=== PATIENT | female | born 1935 | race Caucasian/White ===

== ENCOUNTER → 2016-06-08 | Outpatient (CLI) | payer MEDICARE, BC ==
[~2016-06-08] MED LIST: ACET-1783 PO; ACHD5005 PO; ASCO-262 PO; ASPI-586 PO; ASPI81TA57 PO; BACL10TA PO; CALC1CAP21 PO; CALC600T12 PO; CALCIUM; CEFP500T4 PO; CELE-63 PO; CENTRUM SILVER; CEPH500C PO; CHOL10003 PO; CHOL20002 PO; CIPR-225 PO; CLCX200C PO; CLD600T; CO Q-10; DEXL60CA5 PO; DOCU100T7; DOCU100T7 PO; DULO60CA6 PO; EST.625T; EST45C; FLAX100031 PO; FLAXSEED OIL; FOLI1TAB6 PO; GABA600T2; GABA600T2 PO; HYDR-2890 PO; HYDR-3714 PO; HYDR-3812 PO; HYDR-3816 PO; HYDR-3875 PO; LEVO50TA63 PO; LEVO75TA58; LEVOTHYROX PO; LOVAZA PO; LUNESTA; LVT.025T PO; MULT-856 PO; NAPR500T72; NF-ESOM40C PO; NF-LOVAZAC; NF-LOVAZAC PO; NIAC1000; NIAC1000 PO; NITR-65 PO; OMEG1CAP PO; OMEGA 3 PO; OMG1KC; ONDA4TAB8 PO; OXAPROZIN; PANT40TA PO; PEG250PW PO; RED YEAST RICE; SNN187T PO; SPIR100T28 PO; SPRN25T; TAMS0.4C98 PO; TRAM50TA2 PO; TRM50T PO; VIT D; VITAMIN C; VITIMIN C PO; VYTORIN; ZLP10T; ZLP10T PO; [UNRECOGNIZED DRUG - CODE] PO; [UNRECOGNIZED DRUG - OTHER]
--- OUTSIDE RECORDS SUMMARY | 2016-06-08 11:00 | XMS REPORT | Continuity of Care Document ---
Author Author [facility] Organization [facility] Address Unknown Phone Unavailable Care Team Providers Care Utilization Review Specialist Name Role Phone Lindsey Morris PCP [phone] Source Comments Some departments are not documenting in the electronic medical record. If you do not see the information that you expected, contact Release of Information in the Health Information Management department at [phone] for further assistance in locating additional records.[facility] Active Allergies and Adverse Reactions Allergen Noted Date Severity Reactions Comments Osvaldo 12/29/2014 Low DIZZINESS Hand tremor and confusion Current Medications Prescription Sig. Disp. Refills Start End Date Status Date FLAXSEED OIL (OMEGA 3 PO) Take 1 Cap by mouth twice Active daily. traMADol (ULTRAM) 50 mg Take 50 mg by mouth Active tablet daily. pt takes 2 tabs in the morning, 1 tab in the evening DULoxetine DR (CYMBALTA) Take 60 mg by mouth at Active 60 mg capsule bedtime daily. pantoprazole DR Take 40 mg by mouth twice Active (PROTONIX) 40 mg tablet daily. baclofen (LIORESAL) 10 mg Take 10 mg by mouth at Active tablet bedtime daily. FOLIC Take 1 Tab by mouth Active ACID/MULTIVIT-MIN/LUTEIN daily. (CENTRUM SILVER PO) aspirin EC 81 mg tablet Take 81 mg by mouth Active daily. spironolactone Take 50 mg by mouth every Active (ALDACTONE) 100 mg tablet morning. levothyroxine (SYNTHROID) Take 75 mcg by mouth Active 75 mcg tablet every morning. celecoxib (CELEBREX) 200 Take 200 mg by mouth Active mg capsule twice daily. [place]-3 Acid Ethyl Esters Take 4 g by mouth daily. Active (LOVAZA) 1 gram cap docusate (COLACE) 100 mg Take 100 mg by mouth Active capsule daily. pravastatin (PRAVACHOL) Take 10 mg by mouth Active 10 mg tablet daily. CALCIUM PO Take 1,000 mg by mouth. Active cholecalciferol (VITAMIN Take 1,000 Units by mouth Active D-3) 1,000 units tablet daily. Active Problems No known active problems Resolved Problems Problem Noted Date Resolved Date Hypercalcemia 02/03/2015 03/15/2015 Social History Tobacco Use Types Packs/Day Years Used Date Never Smoker Smokeless Tobacco: Never Used Alcohol Use Drinks/Week oz/Week Comments No 0 Standard 0.0 drinks or equivalent Last Filed Vital Signs Vital Sign Reading Time Taken Blood Pressure 144/80 09/14/2015 10:20 AM CDT Pulse 77 09/14/2015 10:20 AM CDT Temperature 36.7 C (98.1 F) 09/14/2015 10:20 AM CDT Respiratory Rate 18 09/14/2015 10:20 AM CDT Height 1.524 m (5') 09/14/2015 10:20 AM CDT Weight 88.27 kg (194 lb 9.6 oz) 09/14/2015 10:20 AM CDT Body Mass Index 38.01 09/14/2015 10:20 AM CDT Oxygen Saturation 96% 09/14/2015 10:20 AM CDT Plan of Care Health Maintenance Due Date Last Done Comments Physical (Comprehensive) 1942 Exam Pertussis Vaccine 1947 Tetanus Vaccine 1953 Shingles Vaccine 1996 Osteoporosis Screening 2001 Prevnar/Pneumovax (#1) 2001 Influenza Vaccine 01/27/2016 Results from Last 3 Months Not on file
--- NOTE | 2016-06-08 14:53 | Diagnostic Imaging Report ---
EXAMINATION: DEXA scan. INDICATION: Osteopenia. TECHNIQUE: Bone mineral density estimated based on dual energy radiography over the lumbar spine and femoral necks, was performed. FINDINGS: Lumbar spine T score was not feasible secondary to fusion hardware. T score in the left femoral neck is -1.3 and on the right side is -0.6 for a mean of -1. This is a 0.8% decreased density measurements compared to 2011 scan. IMPRESSION: Borderline osteopenia. Dictated by: Dictated on workstation # [id number]
--- NOTE | 2016-06-08 14:57 | Diagnostic Imaging Report ---
PROCEDURE: US Carotid Duplex Bilateral. TECHNIQUE: Multiple real-time grayscale images were obtained over the carotid arteries in various projections bilaterally. Additional duplex Doppler and color Doppler images were also obtained. INDICATION: Multiple falls. FINDINGS: The carotid arteries demonstrate no significant plaque on grayscale images. Color Doppler demonstrates patency of the common, internal and external carotid arteries bilaterally and antegrade flow in the vertebral arteries. There are peak systolic velocities of 96, 90 and 66 cm/s from proximal to distal in the right ICA and velocities of 86, 80 and 72 cm/s from proximal to distal on the left. ICA/CCA ratios are up to 0.8 on the right side and up to 1 on the left. IMPRESSION: No significant atherosclerotic plaque is seen. Estimated underlying stenosis is in the range of 0-25% bilaterally. Dictated by: Dictated on workstation # [id number]
== END ==
LOC: RAD 10:52
PROVIDERS: ATTEND Family Medicine
DX: I65.23 Occlusion and stenosis of bilateral carotid arteries (principal); M80.831A Other osteoporosis with current pathological fracture, right forearm, initial encounter for fracture; E55.9 Vitamin D deficiency, unspecified
CPT/HCPCS: 77080; 93880

== ENCOUNTER → 2016-08-14 | Outpatient (CLI) | payer MEDICARE, BC ==
--- OUTSIDE RECORDS SUMMARY | 2016-08-14 15:20 | XMS REPORT | Continuity of Care Document ---
Author Author [facility] Organization [facility] Address Unknown Phone Unavailable Care Team Providers Care Collection Systems Foreman Name Role Phone Lindsey Morris PCP [phone] Source Comments Some departments are not documenting in the electronic medical record. If you do not see the information that you expected, contact Release of Information in the Health Information Management department at [phone] for further assistance in locating additional records.[facility] Active Allergies and Adverse Reactions Allergen [...] by mouth Active mg capsule twice daily. [place]-3 Acid Ethyl Esters Take 4 g by [...]
--- NOTE | 2016-08-14 16:11 | Diagnostic Imaging Report ---
INDICATION: Nephrolithiasis. EXAMINATION: KUB at 3:39 PM. FINDINGS: There are postop changes from fusion of the lower lumbar spine. There are no calculi seen in the abdomen or pelvis. The bowel gas pattern is normal. IMPRESSION: No acute abnormalities in the abdomen. Dictated by: Dictated on workstation # [id number]
== END ==
LOC: RAD 15:16
PROVIDERS: ATTEND Urology
DX: Z87.442 Personal history of urinary calculi (principal)
CPT/HCPCS: 74000

== ENCOUNTER 2017-05-07 10:28 | Emergency (ER) | payer MEDICARE, BC ==
[~2017-05-07] VITALS: Ht 152.4 cm; Wt 81.6 kg
--- OUTSIDE RECORDS SUMMARY | 2017-05-07 10:35 | XMS REPORT | Clinical Summary ---
Author Author [facility] Organization [facility] Address Unknown Phone Unavailable Care Team Providers Care Can Cutter Name Role Phone PCP Unavailable Source Comments Some departments are not documenting in the electronic medical record. If you do not see the information that you expected, contact Release of Information in the Health Information Management department at [phone] for further assistance in locating additional records.[facility] Allergies Active Allergy Reactions Severity Noted Date Comments Pregabalin DIZZINESS Low 12/29/2014 Hand tremor and confusion Current Medications Prescription [...] by mouth Active mg capsule twice daily. [place]-3 Acid Ethyl Esters Take 4 g by [...] Noted Date Resolved Date Hypercalcemia 02/03/2015 03/15/2015 Family History Medical History Relation Name Comments Arthritis-osteo Mother High Cholesterol Mother Hypertension Mother Diabetes Sister Relation Name Status Comments Mother Sister Social History Tobacco Use Types Packs/Day Years Used Date Never Smoker Smokeless Tobacco: Never Used Alcohol Use Drinks/Week oz/Week Comments No 0 Standard 0.0 drinks or equivalent Sex Assigned at Date Recorded Not on file Last Filed Vital Signs Vital Sign Reading Time Taken Blood Pressure 144/80 09/14/2015 10:20 AM CDT Pulse 77 09/14/2015 10:20 AM CDT Temperature 36.7 C (98.1 F) 09/14/2015 10:20 AM CDT Respiratory Rate 18 09/14/2015 10:20 AM CDT Oxygen Saturation 96% 09/14/2015 10:20 AM CDT Inhaled Oxygen - - Concentration Weight 88.3 kg (194 lb 9.6 oz) 09/14/2015 10:20 AM CDT Height 152.4 cm (5') 09/14/2015 10:20 AM CDT Body Mass Index 38.01 09/14/2015 10:20 AM CDT Plan of Treatment Health Maintenance Due Date Last Done Comments PHYSICAL (COMPREHENSIVE) 1942 EXAM PERTUSSIS VACCINE 1947 TETANUS VACCINE 1953 SHINGLES VACCINE 1996 OSTEOPOROSIS SCREENING 2001 PREVNAR/PNEUMOVAX (#1) 2001 INFLUENZA VACCINE 12/26/2016 Results Not on filefrom Last 3 Months
--- NOTE | 2017-05-07 10:40 | ED Fall/Injury ---
General Stated Complaint: FALL Source: patient Exam Limitations: no limitations (MARIANGEL GEE MD) History of Present Illness Time seen by provider: 10:28 Initial Comments Here with report of fall this morning when taking out the trash. States that she rolled her foot and fell. Denies hitting her head or loss of consciousness. EMS was called when she couldn't get up. She states that there is pain in her left foot and a little bit on her right hip. She landed on her right hip. Occurred: just prior to arrival Severity: mild Injuries/Pain Location: pelvis, lower extremity Context: tripped Loss of Consciousness: no loss of consciousness Modifying Factors: Improves With Immobilization, Worse With Movement Associated Symptoms (Fall): Denies Symptoms (MARIANGEL GEE MD) Allergies and Home Medications Allergies Coded Allergies: No Known Drug Allergies (Unverified , 12/28/15) Home Medications Baclofen 10 Mg Tablet, 1 TAB PO DAILY, #30 (Reported) Calcium Carbonate 600 Mg Tablet, 600 MG PO DAILY, (Reported) Celecoxib 200 Mg Capsule, 1 CAP PO BID, #180 (Reported) Cholecalciferol (Vitamin D3) 2,000 Unit Capsule, 1,000 UNIT PO DAILY, (Reported) Docusate Sodium 100 Mg Tablet, 100 MG PO DAILY, (Reported) Duloxetine Hcl 60 Mg Capsule.dr, 60 MG PO 1700, (Reported) Flaxseed Oil 1,000 Mg Capsule, 1,000 MG PO BID, (Reported) Hydrocodone/Acetaminophen 1 Each Tablet, 1-2 EACH PO Q4H PRN for PAIN, #30 Prescribed by: JOSE MAY on 12/28/15 1117 Hydrocodone/Acetaminophen 1 Each Tablet, 1-2 EACH PO Q4H, #30 Prescribed by: CEDRIC VILLEDA on 05/08/16 1856 Levothyroxine Sodium 50 Mcg Tablet, 50 MCG PO DAILY, (Reported) Multivits W-Fe,Other Min/Lut 1 Each Tablet, 1 TAB PO DAILY, (Reported) Nitrofurantoin Monohyd/M-Cryst 100 Mg Capsule, 1 TAB PO BID, #14 Prescribed by: JOSE MAY on 12/28/15 1117 [place]-3 Acid Ethyl Esters 1 Gm Capsule, 1 GM PO QID, (Reported) Spironolactone 100 Mg Tablet, 50 MG PO DAILY, (Reported) TAKE 1/2 (100MG) TABLET Tamsulosin HCl 0.4 Mg Cap, 0.4 MG PO DAILY PRN, #14 Prescribed by: JOSE MAY on 12/28/15 1117 Tramadol Hcl 50 Mg Tab, 100 MG PO BID, (Reported) TAKE 2 (50MG) TABLET Constitutional: see HPI, No chills, No fever Ears, Nose, Mouth, Throat: no symptoms reported Respiratory: no symptoms reported Cardiovascular: no symptoms reported Gastrointestinal: no symptoms reported Musculoskeletal: see HPI, joint pain, joint swelling Skin: No change in color, No lumps Psychiatric/Neurological: Denies Headache, Denies Numbness, Denies Paresthesia , Denies Weakness (MARIANGEL GEE MD) Past Mocpzzl-Vxzapy-Kstzsu Hx Patient Social History Alcohol Use: Denies Use Recreational Drug Use: No Smoking Status: Never a Smoker Recent Hopitalizations: No (MARIANGEL GEE MD) Immunizations Up To Date Tetanus Booster (TDap): Unknown Date of Pneumonia Vaccine: Mar 28, 2015 Date of Influenza Vaccine: Feb 25, 2014 (MARIANGEL GEE MD) Seasonal Allergies Seasonal Allergies: No (MARIANGEL GEE MD) Surgeries Surgeries: Hysterectomy, Orthopedic, Parathyroidectomy (MARIANGEL GEE MD) Cardiovascular Cardiac Disorders: High Cholesterol, Hypertension (MARIANGEL GEE MD) 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 System Hx 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 Disorders: No Sexually Transmitted Disease: No HIV/AIDS: No Female 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 Disorders: Denies 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: Hysterectomy, Menopausal (MARIANGEL GEE MD) Genitourinary Genitourinary Disorders: Kidney Stones (MARIANGEL GEE MD) Gastrointestinal Gastrointestinal Disorders: Gastroesophageal Reflux (MARIANGEL GEE MD) Musculoskeletal Musculoskeletal Disorders: Degenerate Disk Disease, Arthritis, Chronic Back Pain, Fractures (MARIANGEL GEE MD) Endocrine Endocrine Disorders: Parathyroid Disease, Hypothyroidsim (MARIANGEL GEE MD) HEENT Loss of Vision: Denies Hearing Impairment: Hard of Hearing, Bilateral Hearing Aide (MARIANGEL GEE MD) Psychosocial Behavioral Health Disorders: Anxiety (MARIANGEL GEE MD) Blood Transfusions Adverse Reaction to a Blood Tr: No (N/A) (MARIANGEL GEE MD) Reviewed Nursing Assessment Reviewed/Agree w Nursing PMH: Yes (MARIANGEL GEE MD) Family Medical History Family Medial History: Diabetes mellitus G8 SISTER Parkinson's disease 19 FATHER (MARIANGEL GEE MD) Family Medial History: Diabetes mellitus G8 SISTER Parkinson's disease 19 FATHER (ALICIA GALLARDO APRN) Physical Exam Vital Signs Vital Sign - Last 12Hours 05/07/17 10:30 Temp 97.8 Pulse 88 Resp 18 B/P (MAP) 134/85 (101) Pulse Ox 98 O2 Delivery Room Air (ALICIA GALLARDO APRN) Vital Signs Capillary Refill : (MARIANGEL GEE MD) General Appearance: WD/WN, no apparent distress HEENT: PERRL/EOMI, pharynx normal Neck: full range of motion, supple Cardiovascular: regular rate, rhythm, no murmur Respiratory: lungs clear, normal breath sounds Peripheral Pulses: 2+ Dorsalis Pedis (R), 2+ Left Dors-Pedis (L), 2+ Radial Pulses (R), 2+ Radial Pulses (L) Gastrointestinal: non tender, soft Back: normal inspection, no CVA tenderness, no vertebral tenderness Extremities: no pedal edema, other (left foot mildly tender. Mild tenderness right buttock area. No obvious deformity to the extremities.) Neurologic/Psychiatric: alert, oriented x 3 Skin: normal color, warm/dry (MARIANGEL GEE MD) [place] Coma Score Best Eye Response: (4) Open Spontaneously Best Verbal Response: (5) Oriented Best Motor Response: (6) Obeys Commands (MARIANGEL GEE MD) Progress/Results/Core Measures Results/Orders Vital Signs/I&O Vital Sign - Last 12Hours 05/07/17 10:30 Temp 97.8 Pulse 88 Resp 18 B/P (MAP) 134/85 (101) Pulse Ox 98 O2 Delivery Room Air (ALICIA GALLARDO APRN) Progress Note : Progress Note Seen and evaluated. X-ray right hip and pelvis and left foot ordered. Monitor patient. (MARIANGEL GEE MD) Progress Note : Progress Note NAME: NEVAEH GOINS [facility] REC#: [id number] PT STATUS: REG ER : 1935 PHYSICIAN: MARIANGEL GEE MD ADMIT DATE: 05/07/17/ER Draft Date of Exam:05/07/17 PELVIS WITH RIGHT HIP 2-3VIEWS EXAMINATION: AP view of the pelvis and 2 views of the right hip. INDICATION: Fall. FINDINGS: No fracture, dislocation or radiopaque foreign body. There is degenerative sclerotic changes at the symphysis pubis and mild degenerative changes of the hip joint seen. Mild degenerative changes of SI joints also noted. Posterior fusion hardware is seen projecting over the lower lumbar spine. IMPRESSION: No fracture seen. Dictated on workstation # [id number] Dict: 05/07/17 1108 Trans: 05/07/17 1116 [facility] [id number] Interpreted by: JUANA DAILEY MD Electronically signed by: (ALICIA GALLARDO APRN) Departure Impression Impression: Primary Impression: Fall at home Additional Impression: Contusion, hip Disposition: 01 HOME, SELF-CARE Condition: Stable Departure-Patient Inst. Decision time for Depature: 11:32 (ALICIA GALLARDO APRN) Referrals: TEMO RODRIGUEZ DO (PCP/Family) Primary Care Physician Patient Instructions: Contusion (DC) Add. Discharge Instructions: 1. Return to ER for any concerns 2. Follow-up with your doctor next week 3. MARIANGEL GEE MD May 07, 2017 10:40 ALICIA GALLARDO APRN May 07, 2017 11:18
--- NOTE | 2017-05-07 11:16 | Diagnostic Imaging Report ---
EXAMINATION: AP view of the pelvis and 2 views of the right hip. INDICATION: Fall. FINDINGS: No fracture, dislocation or radiopaque foreign body. There is degenerative sclerotic changes at the symphysis pubis and mild degenerative changes of the hip joint seen. Mild degenerative changes of SI joints also noted. Posterior fusion hardware is seen projecting over the lower lumbar spine. IMPRESSION: No fracture seen. Dictated by: Dictated on workstation # [id number]
--- NOTE | 2017-05-07 11:19 | Diagnostic Imaging Report ---
EXAMINATION: Three views of the left foot. INDICATION: Left foot pain. FINDINGS: There is severe joint space narrowing and articular surface sclerosis and irregularity at the MTP joint of the left great toe. Osteophyte formation is seen. Slight deformity along the medial aspect of the head of the proximal phalanx in the great toe is seen. This is favored to be related to an old injury. No definite acute fracture. Calcaneal spurs are seen. IMPRESSION: Severe degenerative changes at the first MTP joint. Deformity in the medial aspect of the proximal phalanx head of the great toe is probably related to an old injury. A followup study in 10 days could be considered if the patient is tender at this location. Dictated by: Dictated on workstation # [id number]
[2017-05-07 11:45] VITALS: BP 134/85
== END 2017-05-07 11:45 | disposition home or self-care (01) ==
LOC: EDUNIT# 10:28 → ER 10:30
DX: S70.02XA Contusion of left hip, initial encounter (principal); E78.00 Pure hypercholesterolemia, unspecified; I10 Essential (primary) hypertension; M19.90 Unspecified osteoarthritis, unspecified site; E03.9 Hypothyroidism, unspecified; F41.9 Anxiety disorder, unspecified; Z87.442 Personal history of urinary calculi; Z90.89 Acquired absence of other organs; Z90.710 Acquired absence of both cervix and uterus; W01.0XXA Fall on same level from slipping, tripping and stumbling without subsequent striking against object, initial encounter; Y92.009 Unspecified place in unspecified non-institutional (private) residence as the place of occurrence of the external cause
CPT/HCPCS: 73630; 99283

== ENCOUNTER → 2017-09-05 | Outpatient (CLI) | payer MEDICARE, BC ==
[~2017-09-05] MED LIST changes: +HYDR-34 PO; -HYDR-3812 PO; -HYDR-3816 PO
--- NOTE | 2017-09-05 14:58 | Diagnostic Imaging Report ---
INDICATION: Right knee pain for 3 weeks. TIME OF EXAMINATION: 2:34 PM. FINDINGS: Three views of the right knee were obtained. There is chondrocalcinosis of the medial and lateral compartments. There is mild medial compartmental joint space narrowing as well as marginal osteophyte formation. The lateral compartment joint space as well as the patellofemoral compartment are maintained. No fracture, dislocation, or effusion is identified. There are vascular calcifications in the femoropopliteal system. IMPRESSION: Chronic changes. No acute bony abnormality is detected. Dictated by: Dictated on workstation # [id number]
== END ==
LOC: RAD 14:04
PROVIDERS: ATTEND Family Medicine
DX: M25.561 Pain in right knee (principal)
CPT/HCPCS: 73562

== ENCOUNTER 2017-09-22 09:31 | Emergency (ER) | payer MEDICARE, BC ==
[~2017-09-22] VITALS: Ht 152.4 cm; Wt 81.6 kg
[2017-09-22] MEDS ORDERED: DICL100G31 (10:05)
[2017-09-22] MEDS ORDERED: PRD20T (10:05)
[2017-09-22] MEDS ORDERED: HYDR-3812 (10:05)
--- NOTE | 2017-09-22 10:21 | Diagnostic Imaging Report ---
INDICATION: Right shoulder pain. COMPARISON: None. FINDINGS: Three views of right shoulder demonstrate well-seated orthopedic anchor in the humeral head. There is mild degenerative joint disease. 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 There is no new fracture dislocation. IMPRESSION: 1. Mild degenerative changes. No acute fracture dislocation. 2. Not mentioned above, some calcifications in the subacromial space possibly calcific tendinitis. Dictated by: Dictated on workstation # [id number]
[2017-09-22] MEDS ORDERED: KETOROLAC 60 MG/2 ML VIAL IM STA (10:32)
[2017-09-22] MEDS ORDERED: ORPHENADRINE 60 MG/2 ML (NORFLEX) AMP IM STA (10:32)
[2017-09-22] MEDS ORDERED: TRAM-42 PO (10:39)
[2017-09-22] MEDS ORDERED: MELO15TA14 PO (10:39)
--- NOTE | 2017-09-22 10:39 | ED Upper Extremity ---
General Chief Complaint: Upper Extremity Stated Complaint: R SHOULDER PAIN X7 DAYS Nursing Triage Note: 0937 TO ROOM REPORTS HAS R SHOULDER PAIN FOR 1 WEEK. WAS SEEN BY FAMILY ON SUNDAY STARTED ON PREDISONE ,AND AGAIN ON SUNDAY DUE TO NOT BEING ANY BETTER. ON SUNDAY SAW THE METAL FITTER WAS GIVEN HYDROCODONE , AND OINTMENT TO PUT ON SHOULDER. CON' T TO HAVE PAIN. WAS GIVEN DX OF BURSITIS BY DR Curry Sepsis Screen: No Definite Risk Source: patient History of Present Illness Date Seen by Provider: Sep 22, 2017 Time Seen by Provider: 10:05 Initial Comments C/O RIGHT SHOULDER PAIN X 1 WEEK NO KNOWN INJURY PT HAD BACK SURGERY X 2 IN THE LAST FEW MONTHS BY DR. WESTBROOK AT [address], AND HAS BEEN USING A CANE, USING RIGHT HAND, DUE TO BACK PAIN PT IS RIGHT HANDED NO PARESTHESIAS OR MOTOR DEFICITS PAIN IS WITH ANY MOVEMENT OF SHOULDER NO NECK PAIN PT WAS SEEN ON Sunday09/17/[address] RODRIGUEZ AND DX WITH BURSITIS/TENDONITIS AND GIVEN RX FOR PREDNISONE--IT HELPED FOR A FEW DAYS, BUT SHE HAS STARTED TO TAPER THE DOSE, HER PAIN HAS STARTED TO WORSEN SINCE SUNDAY NIGHT SEEN BY METAL FITTER AT DR. RODRIGUEZ'S ON SUNDAY AND WAS GIVEN RX FOR A TOPICAL MEDICATION AND HYDROCODONE STATES NO IMPROVEMENT WITH THOSE MEDICATIONS PT STATES THAT SHE HAS NOT HAD PRIOR PROBLEMS WITH THIS SHOULDER--HOWEVER, SHE HAS HAD BILATERAL ROTATOR CUFF SURGERY BY DR. NOLEN IN THE PAST. Allergies and Home Medications Allergies Coded Allergies: pregabalin (Verified Adverse Reaction, Unknown, MAKES HER SHAKE, 09/22/17) Home Medications Baclofen 10 Mg Tablet, 1 TAB PO DAILY, (Reported) Calcium Carbonate 600 Mg Tablet, 600 MG PO DAILY, (Reported) Celecoxib 200 Mg Capsule, 1 CAP PO BID, (Reported) Cholecalciferol (Vitamin D3) 2,000 Unit Capsule, 1,000 UNIT PO DAILY, (Reported) Docusate Sodium 100 Mg Tablet, 100 MG PO DAILY, (Reported) Duloxetine Hcl 60 Mg Capsule., 60 MG PO 1700, (Reported) Flaxseed Oil 1,000 Mg Capsule, 1,000 MG PO BID, (Reported) Hydrocodone Bit/Acetaminophen 1 Each Tablet, 1-2 EACH PO Q4H Prescribed by: CEDRIC VILLEDA on 05/08/16 6959 Hydrocodone/Acetaminophen 1 Each Tablet, 1-2 EACH PO Q4H PRN for PAIN Prescribed by: JOSE MAY on 12/28/15 1117 Levothyroxine Sodium 50 Mcg Tablet, 50 MCG PO DAILY, (Reported) Meloxicam 15 Mg Tablet, 15 MG PO DAILY Prescribed by: CEDRIC VILLEDA on 09/22/17 1039 Multivits W-Fe,Other Min/Lut 1 Each Tablet, 1 TAB PO DAILY, (Reported) [place]-3 Acid Ethyl Esters 1 Gm Capsule, 1 GM PO QID, (Reported) Spironolactone 100 Mg Tablet, 50 MG PO DAILY, (Reported) TAKE 1/2 (100MG) TABLET Tamsulosin HCl 0.4 Mg Cap, 0.4 MG PO DAILY PRN Prescribed by: JOSE MAY on 12/28/15 111 Tramadol HCl 50 Mg Tablet, 50 MG PO Q4H Prescribed by: CEDRIC VILLEDA on 09/22/17 1039 Tramadol Hcl 50 Mg Tab, 100 MG PO BID, (Reported) TAKE 2 (50MG) TABLET Patient Home Medication List Home Medication List Reviewed: Yes Constitutional: no symptoms reported Respiratory: no symptoms reported Cardiovascular: no symptoms reported Gastrointestinal: no symptoms reported Musculoskeletal: see HPI, back pain, joint pain; No neck pain Skin: no symptoms reported Psychiatric/Neurological: No Symptoms Reported Past Rtoxtgq-Yvooyr-Raszby Hx Patient Social History Alcohol Use: Denies Use Recreational Drug Use: No Smoking Status: Never a Smoker 2nd Hand Smoke Exposure: No Recent Foreign Travel: No Contact w/Someone Who Travel: No Recent Infectious Disease Expo: No Recent Hopitalizations: No Immunizations Up To Date Tetanus Booster (TDap): Unknown Date of Pneumonia Vaccine: Mar 28, 2015 Date of Influenza Vaccine: Feb 25, 2014 Seasonal Allergies Seasonal Allergies: No Past Medical History Surgeries: Yes (BILATERAL ROTATOR CUFF REPAIR, BACK SURGERY X 4; ESOPHAGEAL STRICTURE--EGD'S WITH DILATION X 2) Orthopedic, Parathyroidectomy Respiratory: No Cardiac: Yes High Cholesterol, Hypertension Neurological: No 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 Disorders: No Female 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 Disorders: Denies 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 Sexually Transmitted Disease: No HIV/AIDS: No Genitourinary: Yes Kidney Stones Gastrointestinal: Yes (ESOPHAGEAL STRICTURE-S/P DILATION X 2) Gastroesophageal Reflux Musculoskeletal: Yes (S/P BACK SURGERY X 4; RIGHT WRIST FX--NO SURGERY; BILATERAL ROTATOR CUFF REPAIR) Degenerate Disk Disease, Arthritis, Chronic Back Pain, Fractures Endocrine: Yes (S/P PARATHYROIDECTOMY) Parathyroid Disease, Hypothyroidsim Loss of Vision: Denies Hearing Impairment: Hard of Hearing, Bilateral Hearing Aide Cancer: No Psychosocial: Yes Anxiety Integumentary: No Blood Disorders: No Adverse Reaction/Blood Tranf: No (N/A) Family Medical History Diabetes mellitus G8 SISTER Parkinson's disease 19 FATHER Physical Exam Vital Signs Vital Signs - First Documented 09/22/17 09:53 Temp 97.3 Pulse 77 Resp 18 B/P (MAP) 169/87 (114) Pulse Ox 77 Capillary Refill : Less Than 3 Seconds General Appearance: WD/WN, no apparent distress Neck: non-tender, full range of motion, supple, normal inspection Cardiovascular: normal peripheral pulses, regular rate, rhythm Respiratory: chest non-tender, normal breath sounds, no respiratory distress Shoulder: non-tender (SHOULDER NON-TENDER TO PALPATION, BUT HAS SIGNFICANT PAIN WITH POPPING AND CREPITANCE WITH MINIMAL RANGE OF MOTION. 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, no motor/sensory deficits, alert, normal mood/affect, oriented x 3 Skin: normal color, warm/dry; No rash Procedures/Interventions Splinting and Joint Reduction : Immobilizers: XL Shoulder Progress/Results/Core Measures My Orders Orders - CEDRIC VILLEDA DO Shoulder, Right, 3 Views (09/22/17 10:08) Ketorolac Injection (Toradol Injection) (09/22/17 10:32) Orphenadrine Injection (Norflex Injectio (09/22/17 10:32) Shoulder Immoblizer (09/22/17 10:32) Vital Signs/I&O 09/22/17 09/22/17 09:53 11:15 Temp 97.3 Pulse 77 78 Resp 18 18 B/P (MAP) 169/87 (114) 159/86 Pulse Ox 77 98 Blood Pressure Mean: 114 Comments XRAYS RIGHT SHOULDER--CHRONIC NON-UNION DISTAL CLAVICLE, HUMERAL HEAD ANCHOR IN PLACE, MILD DEGENERATIVE CHANGES, CALCIFICATIONS IN SUBACHROMION SPACE-- POSSIBLE CALCIFIC TENDONITIS--PER RADIOLOGIST REPORT @ 1025 Reviewed: Reviewed by Me Departure Impression Primary Impression: Right shoulder pain Additional Impression: Calcific tendinitis of right shoulder region Disposition: 01 HOME, SELF-CARE Condition: Stable Departure-Patient Inst. Referrals: CJ BARBOUR MD, JACQUELINE S DO (PCP/Family) Primary Care Physician CORNELIO NOLEN MD Patient Instructions: Calcific Tendonitis of the Shoulder (DC), How to Use a Shoulder Sling, Shoulder Pain (DC) Add. Discharge Instructions: WEAR SHOULDER IMMOBILIZER AT ALL TIMES ALTERNATE ICE AND HEAT TO SORE AREAS AT 20 MINUTE INTERVALS FOLLOW UP WITH DR. NOLEN OR ORTHO 4 STATES NEXT WEEK All discharge instructions reviewed with patient and/or family. Voiced understanding. Scripts Meloxicam (Mobic) 15 Mg Tablet 15 MG PO DAILY, #10 TAB Prov: CEDRIC VILLEDA DO 09/22/17 Tramadol HCl (Ultram) 50 Mg Tablet 50 MG PO Q4H, #20 TAB Prov: CEDRIC VILLEDA DO 09/22/17 CEDRIC VILLEDA DO Sep 22, 2017 10:39
[2017-09-22 11:15] VITALS: BP 159/86
== END 2017-09-22 11:15 | disposition home or self-care (01) ==
LOC: EDUNIT# 09:31 → ER 09:32
DX: M75.31 Calcific tendinitis of right shoulder (principal); E89.0 Postprocedural hypothyroidism; F41.9 Anxiety disorder, unspecified; K21.9 Gastro-esophageal reflux disease without esophagitis; E78.00 Pure hypercholesterolemia, unspecified; I10 Essential (primary) hypertension; Z98.890 Other specified postprocedural states; Z87.442 Personal history of urinary calculi; Z87.81 Personal history of (healed) traumatic fracture; Z88.8 Allergy status to other drugs, medicaments and biological substances; Z90.89 Acquired absence of other organs
CPT/HCPCS: 73030; 96372

== ENCOUNTER → 2018-04-11 | Outpatient (CLI) | payer MEDICARE, BC ==
[~2018-04-11] MED LIST changes: +DICL100G31; +HYDR-3812; +MELO15TA14 PO; +PRD20T; +TRAM-42 PO
== END ==
LOC: CARD 09:51
PROVIDERS: ATTEND Family Medicine
DX: R01.1 Cardiac murmur, unspecified (principal); R06.00 Dyspnea, unspecified; I35.1 Nonrheumatic aortic (valve) insufficiency
CPT/HCPCS: 93306

== ENCOUNTER → 2018-05-08 | Outpatient (CLI) | payer MEDICARE, BC ==
[~2018-05-08] VITALS: Ht 154.9 cm; Wt 80.7 kg
[~2018-05-08] MED LIST changes: +CATHETER FLUSH 10 ML SYR IV PRN; +REGADENOSON 0.4 MG/5 ML SYR (LEXISCAN) IV ONE
--- NOTE | 2018-05-08 12:17 | Diagnostic Imaging Report ---
PROCEDURE: US Venous Lower Ext [place]. TECHNIQUE: Multiple real-time grayscale images were obtained over the lower extremities in various projections, bilaterally. Additional duplex Doppler and color Doppler images were also obtained. INDICATION: Leg pain and swelling. FINDINGS: There are no prior studies available for comparison. There is generally good blood flow and compressibility at all levels. There is no evidence for deep venous thrombosis. IMPRESSION: There is no evidence for deep venous thrombosis of either lower extremity. Dictated by: Dictated on workstation # [id number]
[2018-05-08 12:37] VITALS: BP 157/87
[2018-05-08 12:42] VITALS: BP 132/79
--- NOTE | 2018-05-09 08:54 | STRESS TEST ---
DATE OF SERVICE: 05/08/2018 LEXISCAN MYOVIEW STRESS TEST REPORT REFERRING PHYSICIAN: Dr. Morris Baseline heart rate is 74, baseline blood pressure 157/87. Baseline EKG is sinus rhythm with no ischemic changes. In summary, the patient was injected with 10.11 mCi of technetium-99 Myoview and the resting images were obtained. Then, the patient received 0.4 mg of Lexiscan followed by 29.3 mCi of technetium-99 Myoview. Throughout the test, there were no EKG changes. The resting and stress images were reviewed and compared in the short axis, horizontal long axis and vertical long axis views. Review of the images showed breast attenuation with mild decreased uptake at the mid to apical anteroseptum and inferoseptum with subtle reversibility probably due to the breast attenuation. SSS is 7, SDS 4 and TID value 0.94. On the gated images, the left ventricle appeared to be small with normal contractility. Calculated ejection fraction is 80%. CONCLUSION: 1. The patient tolerated Lexiscan well. 2. Breast attenuation with typical female pattern, mild abnormality at the anteroseptum and the inferoseptum probably due to the breast attenuation. No significant ischemia or infarction was noted. 3. Normal left ventricular size with normal contractility. Calculated ejection fraction is 80%. Job ID: [id number] DocumentID: [id number] Dictated Date: 05/09/2018 08:39:29 Nursing Admin Date: 05/09/2018 08:53:32 Dictated By: PEDRO TONEY MD [facility]
== END ==
LOC: CARD 09:59
PROVIDERS: ATTEND Family Medicine
DX: R07.9 Chest pain, unspecified (principal); R06.09 Other forms of dyspnea; R60.0 Localized edema
CPT/HCPCS: 78452; 93017; 93970

== ENCOUNTER → 2018-05-17 | Outpatient (CLI) | payer MEDICARE, BC ==
[~2018-05-17] MED LIST changes: -CATHETER FLUSH 10 ML SYR IV PRN; +IOHEXOL 350 MG/ML 100 ML (OMNIPAQUE 350) VIAL IV ONE; +RECEIVED CONTRAST (Hold Metformin) IV SCH; -REGADENOSON 0.4 MG/5 ML SYR (LEXISCAN) IV ONE
[2018-05-17 12:30] LABS: BUN/CREATININE RATIO 29; CREATININE SERUM 0.83 MG/DL (0.60-1.30); GFR ESTIMATED > 60
[2018-05-17] MEDS: IOHEXOL 350 MG/ML 150 ML (OMNIPAQUE 350) VIAL IV ONE (12:49)
[2018-05-17] MEDS: NS 100 ML (IVPB) BAG IV ONE (12:49)
--- NOTE | 2018-05-17 13:35 | Diagnostic Imaging Report ---
PROCEDURE: CT angiography of the chest with contrast. TECHNIQUE: Multiple contiguous axial images were obtained through the chest after uneventful bolus administration of intravenous contrast. 2D reconstructed CTA MIP acquisitions were also performed. INDICATION: Dyspnea. No prior studies are available for comparison. Evaluation of the pulmonary arterial system is without evidence of thromboembolism. No filling defects are identified within central, lobar or segmental branches. The thoracic aorta is normal caliber. No dissection is seen. No pericardial or pleural fluid is detected. There is some subsegmental atelectasis the right upper lobe medially. Tiny nonspecific micronodularity in the superior segment of right lower lobe as well as in the right upper lobe is noted. Lower lobes appear unremarkable apart from a nodule in the posterior lateral left lower lobe measuring 9 mm. No axillary, hilar or mediastinal lymphadenopathy is detected. Upper abdomen is unremarkable. IMPRESSION: 1. No evidence of pulmonary embolism or thoracic aortic dissection. There is some right suprahilar subsegmental atelectasis without a discrete central obstructing lesion, although the atelectasis does extend to the right hilum. Close interval followup is recommended to confirm clearing. No other significant abnormalities detected. Dictated by: Dictated on workstation # [id number]
== END ==
LOC: RAD 12:02
PROVIDERS: ATTEND Family Medicine
DX: J98.11 Atelectasis (principal); R06.02 Shortness of breath
CPT/HCPCS: 36415; 71275; 82565; 84520

== ENCOUNTER → 2019-02-26 | Outpatient (CLI) | payer MEDICARE, BC ==
[~2019-02-26] MED LIST changes: -IOHEXOL 350 MG/ML 100 ML (OMNIPAQUE 350) VIAL IV ONE; -RECEIVED CONTRAST (Hold Metformin) IV SCH; +RT-ALBUTEROL SULF 2.5 MG/3 ML PRE-MIX VIAL INH ONE
== END ==
LOC: RT 14:36
PROVIDERS: ATTEND Family Medicine
DX: R06.00 Dyspnea, unspecified (principal)
CPT/HCPCS: 94060; 94640; 94726; 94729

== ENCOUNTER → 2019-03-11 | Outpatient (CLI) | payer MEDICARE, BC ==
[~2019-03-11] MED LIST changes: -RT-ALBUTEROL SULF 2.5 MG/3 ML PRE-MIX VIAL INH ONE
--- NOTE | 2019-03-11 08:42 | Diagnostic Imaging Report ---
INDICATION: Anhydrosis. History of TIA TECHNIQUE: Routine non contrast-enhanced axial images were obtained from the skull base to the vertex. Auto Exposure Controls were utilized during the CT exam to meet ALARA standards for radiation dose reduction COMPARISON: 05/08/2016 FINDINGS: The ventricles and cortical sulci are diffusely prominent, compatible with age-related volume loss. There are confluent areas of abnormal, low attenuation in the periventricular white matter. This is consistent with chronic small vessel ischemic changes. There is no midline shift or mass-effect. No acute intra-axial hemorrhage is seen. There are no abnormal areas of increased or decreased density to suggest acute hemorrhage or edema. No extra-axial masses or collections are present. The bony calvarium is intact. The visualized paranasal sinuses are unremarkable. The mastoid air cells are clear. IMPRESSION: 1. No acute intracranial abnormality. No CT evidence of mass, acute infarct or intracranial hemorrhage. 2. Chronic small vessel ischemic changes in deep white matter. Dictated by: Dictated on workstation # [id number]
--- NOTE | 2019-03-11 08:53 | Diagnostic Imaging Report ---
EXAMINATION: CT Chest without contrast. TECHNIQUE: Multiple contiguous axial images were obtained through the chest without the use of intravenous contrast. All CT scans use one or more of the following dose optimizing techniques: automated exposure control, MA and/or KvP adjustment based on a patient size and exam type, or iterative reconstruction. HISTORY: HX OF TIA, cough, and shortness of breath. COMPARISON: 05/17/2018. FINDINGS: The lungs are clear without edema or pneumonia. No pleural effusion or pneumothorax. There is an unchanged 9 mm left lower lobe pulmonary nodule (series 4, image 98). There are numerous tiny nodules noted, predominantly in a centrilobular distribution, throughout both lungs in keeping with respiratory bronchiolitis. There is an unchanged area of atelectasis in the right upper lobe. The heart size is normal. No pericardial effusion. The aorta is normal in caliber. There is no axillary, supraclavicular, or mediastinal lymphadenopathy. There are calcified mediastinal lymph nodes. Limited views of the upper abdomen are unremarkable. There are no suspicious osseus lesions. There is an unchanged moderate compression fracture above a long segment instrumented posterior spinal fusion of the thoracolumbar spine. IMPRESSION: There are numerous tiny centrilobular nodules throughout both lungs in keeping with respiratory bronchiolitis/respiratory bronchiolitis interstitial lung disease. Dictated by: Dictated on workstation # [id number]
== END ==
LOC: RAD 08:14
PROVIDERS: ATTEND Family Medicine
DX: J44.9 Chronic obstructive pulmonary disease, unspecified (principal); H53.8 Other visual disturbances; L74.4 Anhidrosis; I67.82 Cerebral ischemia; Z86.73 Personal history of transient ischemic attack (TIA), and cerebral infarction without residual deficits
CPT/HCPCS: 70450; 71250

== ENCOUNTER 2019-06-01 08:33 | Emergency (ER) | payer MEDICARE, BC ==
[~2019-06-01] VITALS: Ht 152 cm; Wt 79.0 kg
[2019-06-01] MEDS ORDERED: LACTATED RINGERS 1,000 ML IV ONE (09:00)
[2019-06-01] MEDS ORDERED: AMOX1TAB11 (09:06)
[2019-06-01] MEDS ORDERED: HYOSCYAMINE 0.125 MG (LEVSIN) TAB SL ONE (09:15)
[2019-06-01 09:22] LABS: BASOPHILS % (AUTO) 0 % (0-10); EOSINOPHILS # (AUTO) 0.1 10^3/uL (0.0-0.3); EOSINOPHILS % (AUTO) 1 % (0-10); HEMATOCRIT 46 % (35-52); HEMOGLOBIN 15.6 G/DL (11.5-16.0); LYMPHOCYTES # (AUTO) 1.4 X 10^3 (1.0-4.0); LYMPHOCYTES % (AUTO) 23 % (12-44); MEAN CORPUSCULAR HEMOGLOBIN 29 PG (25-34); MEAN CORPUSCULAR HGB CONC 34 G/DL (32-36); MEAN CORPUSCULAR VOLUME 85 FL (80-99); MEAN PLATELET VOLUME 10.3 FL (7.4-10.4); MONOCYTES # (AUTO) 0.4 X 10^3 (0.0-1.0); MONOCYTES % (AUTO) 6 % (0-12); NEUTROPHILS # (AUTO) 4.4 X 10^3 (1.8-7.8); NEUTROPHILS % (AUTO) 71 % (42-75); PLATELET COUNT 205 10^3/uL (130-400); RED CELL DISTRIBUTION WIDTH 14.6 % (10.0-14.5); WHITE BLOOD COUNT 6.2 10^3/uL (4.3-11.0)
--- NOTE | 2019-06-01 09:34 | ED GI ---
General Chief Complaint: Abdominal/GI Problems Stated Complaint: DIARRHEA Nursing Triage Note: PT PRESENTS TO ED WITH COMPLAINTS OF N/V STARTING EARLY SUNDAY MORNING AND DIAHRREA STARTING SUNDAY. PT STATES SHE WAS PLACED ON AN ANTIBIOTIC FOR WALKING PNEUMONIA ON SUNDAY. Sepsis Screen: No Definite Risk Source of Information: Patient Exam Limitations: No Limitations History of Present Illness Date Seen by Provider: Jun 01, 2019 Time Seen by Provider: 08:56 Initial Comments Here with report of diarrhea. This started after respiratory illness and was started on Augmentin on . She started getting vomiting night/early Sunday morning. Started with diarrhea yesterday (Sunday) and that has persisted. Vomiting has resolved. She still has mild cough. Reports multiple episodes of diarrhea overnight and this morning. She has taken 3 Imodium for the diarrhea and that has not resolved yet. Timing/Duration: 2-3 Days Severity/Quality: Moderate, Cramping Location: Generalized Abdomen Radiation: No Radiation Activities at Onset: None Modifying Factors: Improves With Coughing Associated Symptoms: No Back Pain, No Chest Pain, No Fever/Chills; Nausea/Vomiting, Shortness of Air Allergies and Home Medications Allergies Coded Allergies: pregabalin (Verified Adverse Reaction, Unknown, MAKES HER SHAKE, 09/22/17) Home Medications Baclofen 10 Mg Tablet, 1 TAB PO DAILY, (Reported) Calcium Carbonate 600 Mg Tablet, 600 MG PO DAILY, (Reported) Celecoxib 200 Mg Capsule, 1 CAP PO BID, (Reported) Cholecalciferol (Vitamin D3) 2,000 Unit Capsule, 1,000 UNIT PO DAILY, (Reported) Docusate Sodium 100 Mg Tablet, 100 MG PO DAILY, (Reported) Duloxetine Hcl 60 Mg Capsule.dr, 60 MG PO 1700, (Reported) Flaxseed Oil 1,000 Mg Capsule, 1,000 MG PO BID, (Reported) Hydrocodone Bit/Acetaminophen 1 Each Tablet, 1-2 EACH PO Q4H Prescribed by: CEDRIC VILLEDA on 05/08/16 1856 Hydrocodone/Acetaminophen 1 Each Tablet, 1-2 EACH PO Q4H PRN for PAIN Prescribed by: JOSE MAY on 12/28/15 1117 Levothyroxine Sodium 50 Mcg Tablet, 50 MCG PO DAILY, (Reported) Meloxicam 15 Mg Tablet, 15 MG PO DAILY Prescribed by: CEDRIC VILLEDA on 09/22/17 1039 Multivits W-Fe,Other Min/Lut 1 Each Tablet, 1 TAB PO DAILY, (Reported) [place]-3 Acid Ethyl Esters 1 Gm Capsule, 1 GM PO QID, (Reported) Spironolactone 100 Mg Tablet, 50 MG PO DAILY, (Reported) TAKE 1/2 (100MG) TABLET Tamsulosin HCl 0.4 Mg Cap, 0.4 MG PO DAILY PRN Prescribed by: JOSE MAY on 12/28/15 1117 Tramadol HCl 50 Mg Tablet, 50 MG PO Q4H Prescribed by: CEDRIC VILLEDA on 09/22/17 1039 Tramadol Hcl 50 Mg Tab, 100 MG PO BID, (Reported) TAKE 2 (50MG) TABLET Patient Home Medication List Home Medication List Reviewed: Yes Review of Systems Review of Systems Constitutional: see HPI, chills; No fever EENTM: No Symptoms Reported Respiratory: Cough; Denies Shortness of Air Cardiovascular: No Symptoms Reported Gastrointestinal: See HPI, Diarrhea, Nausea, Vomiting Genitourinary: No Symptoms Reported Musculoskeletal: no symptoms reported Skin: no symptoms reported All Other Systems Reviewed Negative Unless Noted: Yes Past Fidhbfd-Vaczad-Bdekap Hx Patient Social History Alcohol Use: Denies Use Recreational Drug Use: No Smoking Status: Never a Smoker 2nd Hand Smoke Exposure: No Recent Foreign Travel: No Contact w/Someone Who Travel: No Recent Infectious Disease Expo: No Recent Hopitalizations: No Physical Abuse: No Sexual Abuse: No Mistreated: No Fear: No Immunizations Up To Date Tetanus Booster (TDap): Unknown Date of Pneumonia Vaccine: Mar 28, 2015 Date of Influenza Vaccine: Feb 25, 2014 Seasonal Allergies Seasonal Allergies: No Past Medical History Surgeries: Yes (BILAT CARPAL TUNNEL, BACK/NECK ) Orthopedic, Parathyroidectomy Respiratory: No Cardiac: Yes High Cholesterol, Hypertension Neurological: No 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 Disorders: No Female 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 Disorders: 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 Sexually Transmitted Disease: No HIV/AIDS: No Genitourinary: Yes Kidney Stones Gastrointestinal: Yes (ESOPHAGEAL STRICTURE-S/P DILATION X 2) Gastroesophageal Reflux Musculoskeletal: Yes Degenerate Disk Disease, Arthritis, Chronic Back Pain, Fractures Endocrine: Yes (S/P PARATHYROIDECTOMY) Parathyroid Disease, Hypothyroidsim Loss of Vision: Denies Hearing Impairment: Hard of Hearing, Bilateral Hearing Aide Cancer: No Psychosocial: Yes Anxiety Integumentary: No Blood Disorders: No Adverse Reaction/Blood Tranf: No (N/A) Family Medical History Reviewed Nursing Family Hx Diabetes mellitus G8 SISTER Parkinson's disease 19 FATHER Physical Exam Vital Signs Vital Signs - First Documented 06/01/19 09:06 Temp 36.4 Pulse 105 Resp 20 B/P (MAP) 119/91 (100) Pulse Ox 99 Capillary Refill : Less Than 3 Seconds Height/Weight/BMI Height: 5'1.00" Weight: 188lbs. 6.0oz. [id number]; 34.00 BMI Method:Stated General Appearance: WD/WN, no apparent distress HEENT: PERRL/EOMI, pharynx normal Neck: full range of motion, supple Respiratory: lungs clear, normal breath sounds Cardiovascular: no murmur, tachycardia Gastrointestinal: non tender, soft Extremities: non-tender, normal inspection Back: normal inspection, no CVA tenderness, no vertebral tenderness Neurologic/Psychiatric: alert, oriented x 3 Skin: normal color, warm/dry Progress/Results/Core Measures Results/Orders Lab Results Laboratory Tests Test 06/01/19 09:01 06/01/19 11:21 Range/Units White Blood Count 6.2 4.3-11.0 10^3/uL Red Blood Count 5.41 4.35-5.85 10^6/uL Hemoglobin 15.6 11.5-16.0 G/DL Hematocrit 46 35-52 % Mean Corpuscular Volume 85 80-99 FL Mean Corpuscular Hemoglobin 29 25-34 PG Mean Corpuscular Hemoglobin Concent 34 32-36 G/DL Red Cell Distribution Width 14.6 H 10.0-14.5 % Platelet Count 205 130-400 10^3/uL Mean Platelet Volume 10.3 7.4-10.4 FL Neutrophils (%) (Auto) 71 42-75 % Lymphocytes (%) (Auto) 23 12-44 % Monocytes (%) (Auto) 6 0-12 % Eosinophils (%) (Auto) 1 0-10 % Basophils (%) (Auto) 0 0-10 % Neutrophils # (Auto) 4.4 1.8-7.8 X 10^3 Lymphocytes # (Auto) 1.4 1.0-4.0 X 10^3 Monocytes # (Auto) 0.4 0.0-1.0 X 10^3 Eosinophils # (Auto) 0.1 0.0-0.3 10^3/uL Basophils # (Auto) 0.0 0.0-0.1 10^3/uL Sodium Level 136 135-145 MMOL/L Potassium Level 3.7 3.6-5.0 MMOL/L Chloride Level 101 98-107 MMOL/L Carbon Dioxide Level 19 L 21-32 MMOL/L Anion Gap 16 H 5-14 MMOL/L Blood Urea Nitrogen 31 H 7-18 MG/DL Creatinine 0.95 0.60-1.30 MG/DL Estimat Glomerular Filtration Rate 56 BUN/Creatinine Ratio 33 Glucose Level 129 H 70-105 MG/DL Calcium Level 9.0 8.5-10.1 MG/DL Corrected Calcium 8.8 8.5-10.1 MG/DL Total Bilirubin 1.0 0.1-1.0 MG/DL Aspartate Amino Transf (AST/SGOT) 20 5-34 U/L Alanine Aminotransferase (ALT/SGPT) 23 0-55 U/L Alkaline Phosphatase 75 40-136 U/L C-Reactive Protein High Sensitivity 5.57 H 0.00-0.50 MG/DL Total Protein 6.7 6.4-8.2 GM/DL Albumin 4.2 3.2-4.5 GM/DL Urine Color YELLOW Urine Clarity CLEAR Urine pH 5.5 5-9 Urine Specific [place] >=1.030 1.016-1.022 Urine Protein NEGATIVE NEGATIVE Urine Glucose (UA) NEGATIVE NEGATIVE Urine Ketones 1+ H NEGATIVE Urine Nitrite NEGATIVE NEGATIVE Urine Bilirubin 1+ H NEGATIVE Urine Urobilinogen 0.2 < = 1.0 MG/DL Urine Leukocyte Esterase NEGATIVE NEGATIVE Urine RBC (Auto) TRACE-I NEGATIVE Urine RBC RARE /HPF Urine WBC NONE /HPF Urine Squamous Epithelial Cells NONE /HPF Urine Crystals NONE /LPF Urine Bacteria NEGATIVE /HPF Urine Casts NONE /LPF Urine Mucus NEGATIVE /LPF Urine Culture Indicated NO Micro Results Microbiology 06/01/19 C. difficile GDH Antigen & Toxins - Final, Resulted 06/01/19 Stool Culture, Resulted Pending My Orders Orders - MARIANGEL GEE MD Cbc With Automated Diff (06/01/19 08:57) Comprehensive Metabolic Panel (06/01/19 08:57) Hs C Reactive Protein (06/01/19 08:57) Ua Culture If Indicated (06/01/19 08:57) Stool Culture (06/01/19 08:57) C Difficile Ag + Toxin A/B. (06/01/19 08:57) Ed Iv/Invasive Line Start (06/01/19 09:00) Lactated Ringers (Lr 1000 Ml Iv Solution (06/01/19 09:00) Hyoscyamine Sl Tablet (Levsin Sl Tablet) (06/01/19 09:15) Chest 1 View, Ap/Pa Only (06/01/19 12:07) Ed Iv/Invasive Line Start (06/01/19 12:07) Ns Iv 500 Ml (Sodium Chloride 0.9%) (06/01/19 12:07) Medications Given in ED Current Medications Medications Dose Ordered Sig/Gerardo Route Start Time Stop Time Status Last Admin Dose Admin Hyoscyamine Sulfate 0.125 mg ONCE ONCE SL 06/01/19 09:15 06/01/19 09:16 DC 06/01/19 09:21 0.125 MG Lactated Ringer's 1,000 ml @ 0 mls/hr Q0M ONCE IV 06/01/19 09:00 06/01/19 09:01 DC 06/01/19 09:21 0 MLS/HR Sodium Chloride 500 ml @ 0 mls/hr Q0M ONCE IV 06/01/19 12:07 06/01/19 12:09 DC 06/01/19 12:15 0 MLS/HR Vital Signs/I&O 06/01/19 09:06 Temp 36.4 Pulse 105 Resp 20 B/P (MAP) 119/91 (100) Pulse Ox 99 Blood Pressure Mean: 100 Progress Progress Note : Progress Note Seen and evaluated. IV, labs, UA, LR 1 L bolus and Levsin 0.125 mg by mouth ordered. Monitor patient. Doing better. We will try to get stool sample for culture and C. difficile. Monitor patient. 1300: Repeat fluids bolus with normal saline 500 mL IV. Pending cultures. UA done and is negative. Chest x-ray results pending. 1330: Patient is overall doing better. Chest x-ray is negative. There does not appear that she has acute infectious disorder at this time. Walking pneumonia would still be a concern although labs and x-ray are not concerning fo r significant pneumonia. I do believe the antibiotic may be part of the problem. She did respond okay to Levsin and we will continue that outpatient as needed. She'll also be allowed to view another dose or 2 of the Imodium as needed. She will be instructed to initiate probiotic. She was instructed to stop the antibiotic. Discharged home with return precautions. Patient verbalize u nderstanding instructions and agreement with plan. Diagnostic Imaging Diagonstic Imaging: Xray Plain Films/CT/US/NM/MRI: chest Comments [facility], [place] NAME: NEVAEH GOINS [facility] REC#: [id number] PT STATUS: REG ER : 1935 PHYSICIAN: MARIANGEL GEE MD ADMIT DATE: 06/01/19/ER Signed Date of Exam:06/01/19 CHEST 1 VIEW, AP/PA ONLY INDICATION: Cough and congestion. COMPARISON: December 05, 2015. TECHNIQUE: Single frontal radiograph of the chest dated June 01, 2019. FINDINGS: Stable significant elevation of the right hemidiaphragm. Postsurgical changes within the cervical spine, new since 2016. Extensive postsurgical changes within the thoracolumbar spine, including new postsurgical changes since 2016. The cardiac silhouette is within normal limits in size. No significant pulmonary vascular congestion. Scarring within the right suprahilar region is again identified and stable. The lungs otherwise appear clear. No pleural effusion. No pneumothorax. Postsurgical changes within the right shoulder. No acute osseous abnormality. IMPRESSION: No acute cardiopulmonary abnormality with postsurgical and chronic findings as described above. Dictated by: Dictated on workstation # [id number] Dict: 06/01/19 1243 Trans: 06/01/19 1252 [id number] Interpreted by: PARESH YUSUF MD Electronically signed by: PARESH YUSUF MD 06/01/19 1252 Reviewed: Reviewed by Me Departure Impression Primary Impression: Diarrhea Qualified Codes: R19.7 - Diarrhea, unspecified Additional Impression: Acute dehydration Disposition: HOME, SELF-CARE Condition: Stable Departure-Patient Inst. Decision time for Depature: 13:35 Referrals: TEMO MORRIS DO (PCP/Family) Primary Care Physician Patient Instructions: Dehydration, Adult (DC), Diarrhea in Adolescents and Adults Add. Discharge Instructions: All discharge instructions reviewed with patient and/or family. Voiced understanding. Stop the antibiotic. You may start [id number] probiotic per package directions. Drink plenty of fluids with taking small sips frequently. Clear or light diet for the next 24 hours and then advance as tolerated. Take medications as directed. You may take up to 2 more doses of the Imodium antidiarrheal medicine today. Follow-up with Dr. Morris in one to 2 days for recheck and further evaluation. Return for worse pain, weakness, fever, breathing problems or other concerns as needed. Scripts Hyoscyamine Sulfate (Levsin-Sl) 0.125 Mg Tab.subl 0.125 MG SL Q4H PRN for DIARRHEA, #10 TAB 0 Refills Prov: MARIANGEL GEE MD 06/01/19 Copy Copies To 1: TEMO MORRIS TIMOTHY D MD Jun 01, 2019 09:34
[2019-06-01 09:40] LABS: ALBUMIN 4.2 GM/DL (3.2-4.5); CREATININE SERUM 0.95 MG/DL (0.60-1.30); POTASSIUM 3.7 MMOL/L (3.6-5.0); TOTAL PROTEIN 6.7 GM/DL (6.4-8.2)
[2019-06-01 11:28] LABS: CLARITY,URINE CLEAR; COLOR,URINE YELLOW; GLUCOSE, URINE (UA) NEGATIVE (NEGATIVE); KETONES,URINE 1+ (NEGATIVE); LEUKOCYTE ESTERASE ,URINE NEGATIVE (NEGATIVE); NITRITE,URINE NEGATIVE (NEGATIVE); PH,URINE 5.5 (5-9); PROTEIN,URINE NEGATIVE (NEGATIVE)
[2019-06-01] MEDS ORDERED: D5 NS 1000 ML IV SOLUTION 1,000 ML IV STA (11:28)
[2019-06-01 11:37] LABS: BACTERIA,URINE NEGATIVE /HPF; BILIRUBIN,URINE 1+ (NEGATIVE); RBC,URINE RARE /HPF
[2019-06-01] MEDS ORDERED: NS IV 500 ML 500 ML IV ONE (12:07)
--- NOTE | 2019-06-01 12:48 | Diagnostic Imaging Report ---
INDICATION: Cough and congestion. COMPARISON: December 05, 2015. TECHNIQUE: Single frontal radiograph of the chest dated June 01, 2019. FINDINGS: Stable significant elevation of the right hemidiaphragm. Postsurgical changes within the cervical spine, new since 2016. Extensive postsurgical changes within the thoracolumbar spine, including new postsurgical changes since 2016. The cardiac silhouette is within normal limits in size. No significant pulmonary vascular congestion. Scarring within the right suprahilar region is again identified and stable. The lungs otherwise appear clear. No pleural effusion. No pneumothorax. Postsurgical changes within the right shoulder. No acute osseous abnormality. IMPRESSION: No acute cardiopulmonary abnormality with postsurgical and chronic findings as described above. Dictated by: Dictated on workstation # [id number]
--- NOTE | 2019-06-01 13:12 | NUR ---
pt sitting in bed resting with daughter by her side. She reports she is feeling a little better. pt HR 75, pt 02 sat 96% and her blood pressure 105/65.
[2019-06-01] MEDS ORDERED: HYOS0.1283 SL (13:38)
[2019-06-01 13:52] VITALS: BP 115/65
== END 2019-06-01 13:57 | disposition home or self-care (01) ==
LOC: EDUNIT# 08:33 → ER 08:35
DX: R19.7 Diarrhea, unspecified (principal); E86.0 Dehydration; I10 Essential (primary) hypertension; E78.00 Pure hypercholesterolemia, unspecified; K21.9 Gastro-esophageal reflux disease without esophagitis; E03.9 Hypothyroidism, unspecified; F41.9 Anxiety disorder, unspecified; Z87.442 Personal history of urinary calculi
CPT/HCPCS: 36415; 51701; 71045; 80053; 81000; 85025; 86141; 87015; 87045; 87046; 87324; 87449; 87899; 96360; 96361

== ENCOUNTER → 2019-06-24 | Outpatient (RCR) | payer MEDICARE, BC ==
[2019-04-01 08:00] VITALS: BP 157/90
[2019-04-01 09:30] VITALS: BP 100/60
[2019-04-03 08:00] VITALS: BP 165/82
[2019-04-03 09:10] VITALS: BP 130/74
[2019-04-08 08:00] VITALS: BP 150/50
[2019-04-10 08:00] VITALS: BP 150/60
[2019-04-10 09:00] VITALS: BP 130/60
[2019-04-15 08:00] VITALS: BP 124/64
[2019-04-15 09:00] VITALS: BP 130/72
[2019-04-17 08:10] VITALS: BP 100/70
[2019-04-17 09:10] VITALS: BP 128/68
[2019-04-22 08:05] VITALS: BP 120/62
[2019-04-22 08:52] VITALS: BP 116/72
[2019-04-29 08:00] VITALS: BP 150/90
[2019-04-29 09:17] VITALS: BP 118/52
[2019-05-01 08:00] VITALS: BP 140/60
[2019-05-01 09:34] VITALS: BP 140/60
[2019-05-06 08:00] VITALS: BP 130/60
[2019-05-06 09:13] VITALS: BP 100/60
[2019-05-08 08:23] VITALS: BP 165/60
[2019-05-08 09:30] VITALS: BP 108/60
[2019-05-15 08:00] VITALS: BP 140/60
[2019-05-15 09:26] VITALS: BP 113/40
[2019-05-22 08:00] VITALS: BP 157/90
[2019-05-22 09:07] VITALS: BP 120/60
[2019-06-10 08:00] VITALS: BP 139/79
[2019-06-10 09:05] VITALS: BP 140/80
[2019-06-17 08:00] VITALS: BP 160/81
[2019-06-17 09:10] VITALS: BP 122/70
[2019-06-19 08:00] VITALS: BP 148/60
[2019-06-19 09:25] VITALS: BP 103/50
[~2019-06-24] MED LIST changes: +AMOX1TAB11; +HYOS0.1283 SL; -TAMS0.4C98 PO; +TMSL.4C PO
[2019-06-24 08:10] VITALS: BP 160/60
[2019-06-24 09:30] VITALS: BP 120/60
[2019-06-26 08:00] VITALS: BP 170/90
[2019-06-26 09:13] VITALS: BP 126/77
== END | disposition home or self-care (01) ==
LOC: PULM 03-26 08:07
PROVIDERS: ATTEND Family Medicine
DX: J44.9 Chronic obstructive pulmonary disease, unspecified (principal)
CPT/HCPCS: 99211

== ENCOUNTER 2019-07-29 08:00 | Outpatient (RCR) | payer MEDICARE, BC ==
[2019-07-01 08:00] VITALS: BP 176/84
[2019-07-01 08:59] VITALS: BP 120/48
[2019-07-15 08:00] VITALS: BP 150/82
[2019-07-15 09:05] VITALS: BP 130/60
[2019-07-17 08:05] VITALS: BP 160/60
[2019-07-17 09:18] VITALS: BP 110/70
[2019-07-22 08:00] VITALS: BP 110/80
[2019-07-22 09:16] VITALS: BP 130/60
[2019-07-24 08:00] VITALS: BP 150/60
[2019-07-24 09:20] VITALS: BP 122/64
[2019-07-29 07:58] VITALS: BP 140/40
[2019-07-29 08:00] VITALS: BP 140/40
[~2019-07-29 08:00] MED LIST changes: +ACHD5005; -HYDR-3812
[2019-07-29 09:01] VITALS: BP 104/62
--- NOTE | 2019-08-12 08:50 | NUR ---
Pt is a member of pulmonary rehabilitation maintenance group; looked up file to get contact information to inform pt of available exercise hours.
== END 2019-09-29 | disposition home or self-care (01) ==
LOC: PULM 08:00
PROVIDERS: ATTEND Family Medicine
DX: J44.9 Chronic obstructive pulmonary disease, unspecified (principal)

== ENCOUNTER → 2020-10-26 | Outpatient (CLI) | payer MEDICARE, BC ==
[~2020-10-26] MED LIST changes: -CALC600T12 PO; +CALC600T91 PO
--- NOTE | 2020-10-26 15:21 | Diagnostic Imaging Report ---
INDICATION: Postmenopausal screening COMPARISON: 06/08/2016 FINDINGS: AP Spine L1-L4: [BMD (g/cm2): NA] [T-Score: NA] [Z-Score: NA] [BMD Previous: NA] [BMD % Change: NA] LT Hip Neck: [BMD (g/cm2): 0.847] [T-Score: -1.4] [Z-Score: 0.6] LT Hip Total: [BMD (g/cm2):0.912] [T-Score:-0.8] [Z-Score: 1.1] [BMD Previous: 0.839] [BMD % Change: 8.7] RT Hip Neck: [BMD (g/cm2):0.747] [T-Score:-2.1] [Z-Score:-0.1] RT Hip Total: [BMD (g/cm2):0.873] [T-score:-1.1] [Z-Score:0.8] [BMD Previous:0.930] [BMD % Change:-6.1] *Indicates significant change from prior examination based on 95% confidence level. World Health Organization criteria for BMD interpretation classify patients as Normal (T-score at or above -1.0), Osteopenic (T-score between -1.0 and -2.5) or Osteoporotic (T-score at or below -2.5). LIMITATIONS AND MODIFICATION: None. FRACTURE RISK (FRAX SCORE): The ten year probability of (%): Major Osteoporotic Fracture: [21.8] Hip Fracture: [6.2] IMPRESSION: 1. Osteopenia (Low bone mass). 2. No significant change in bone mineral density since prior examination. 3. See below National Osteoporosis Foundation guidelines on when to potentially initiate pharmacologic therapy. Based on the National Osteoporosis Foundation Guidelines, pharmacologic treatment should be initiated in any of the following, unless clinical conditions suggest otherwise: * Any patient with prior fragility fracture of the hip or vertebrae. A spine fracture indicates 5X risk for subsequent spine fracture and 2X risk for subsequent hip fracture. * Osteoporosis (T-score <-2.5). * Postmenopausal women and men age 50 and older with low bone mass/osteopenia (T-score between -1.0 and -2.5) by DXA and 10-year major osteoporotic fracture greater than 20% or a 10-year probability of hip fracture greater than 3%. These fracture risks are supplied above in the FRAX score, if applicable. * Clinician judgement and/or patient preferences may indicate treatment for people with 10-year fracture probabilities above or below these levels. Dictated by: Dictated on workstation # [id number]
== END ==
LOC: RAD 11:00
PROVIDERS: ATTEND Family Medicine
DX: M85.80 Other specified disorders of bone density and structure, unspecified site (principal); Z78.0 Asymptomatic menopausal state
CPT/HCPCS: 77080

== ENCOUNTER → 2021-06-09 | Outpatient (CLI) | payer MEDICARE, BC ==
[~2021-06-09] VITALS: Ht 152 cm; Wt 81.0 kg
[~2021-06-09] MED LIST changes: +CATHETER FLUSH 10 ML SYR IV PRN; +DICL100G13; -DICL100G31; +REGADENOSON 0.4 MG/5 ML SYR (LEXISCAN) IV ONE
[2021-06-09 09:02] VITALS: BP 166/82
--- NOTE | 2021-06-09 13:20 | NUCLEAR STRESS TEST ---
REGADENOSON NUCLEAR STRESS Date of procedure: 06/09/2021. Primary care provider: Lindsey Morris DO Admitting physician: Payam Ortiz Jr., MD. INDICATION: Abnormal electrocardiogram. BASELINE ELECTROCARDIOGRAM: Sinus rhythm with possible old septal myocardial infarction. STRESS TEST PROCEDURE: The patient was administered 0.4 mg of intravenous R egadenoson. The resting heart rate was 82 bpm and the peak heart rate was 90 bpm. The resting blood pressure was 177/99 mmHg and the minimum blood pressure was 153/80 mmHg. This represents a normal heart rate and a normal blood pressure response to Regadenoson. The test was stopped due to the protocol. There was no chest discomfort during the test. There were no arrhythmias during the test. There were no significant stress induced electrocardiogram changes. NUCLEAR PROCEDURE: The patient was administered 10.7 mCi of intravenous technetium 99m Tetrofosmin at rest for the rest images. The patient was subsequently administered 33 mCi of intravenous technetium 99m Tetrofosmin at peak stress for the stress images. Following an appropriate wait after each injection, imaging was obtained. The images were subsequently processed and reformatted in the usual views. Gated imaging was obtained. The image quality was adequate with a moderate degree of gastrointestinal attenuation artifact. CT attenuation correction was used as a adjunct to standard imaging. Both the corrected and uncorrected images were reviewed for interpretation. NUCLEAR RESULTS: There was normal myocardial perfusion in all segments without evidence of infarction or ischemia. There was normal left ventricular chamber size with an end-diastolic volume of 27 mL and an end-systolic volume of 5 mL. There was no evidence of transient ischemic dilatation. The TID ratio was 1.11. There was normal wall motion in all segments with a calculated ejection fraction of 81%. IMPRESSION: 1. Normal heart rate and blood pressure response to regadenoson. 2. There was no chest discomfort, arrhythmias, or electrocardiogram changes during the test. 3. There was normal myocardial perfusion in all segments without evidence of infarction or ischemia. 4. There was normal wall motion in all segments with a calculated ejection fraction of 81%. Certain portions of this document may have been dictated utilizing voice recognition technology. Inherent to this technology, typographical and grammatical errors may exist. As much as I am diligent to identify and correct these mistakes, some errors may remain in the document. PAYAM ORTIZ JR, MD Jun 09, 2021 13:20
== END ==
LOC: CARD 08:30
PROVIDERS: ATTEND Internal Medicine Cardiovascular Disease
DX: R94.31 Abnormal electrocardiogram [ECG] [EKG] (principal)
CPT/HCPCS: 78452; 93017; A9502

== ENCOUNTER → 2021-08-17 | Outpatient (CLI) | payer MEDICARE, BC ==
[~2021-08-17] MED LIST changes: -CATHETER FLUSH 10 ML SYR IV PRN; -REGADENOSON 0.4 MG/5 ML SYR (LEXISCAN) IV ONE
--- NOTE | 2021-08-19 09:23 | Holter Monitor ---
HOLTER MONITOR DATE OF PROCEDURE: 08/17/2021. INDICATION: Ventricular tachycardia. PROCEDURE: A 24-hour Holter monitor was obtained for a total of 24 hours. The study quality is adequate. RESULTS: 1. Baseline sinus rhythm with an average heart rate of 77 bpm, ranging from 56- 126 bpm while in sinus rhythm. 2. There were occasional (238), isolated premature supraventricular complexes, 17 supraventricular couplets and 2 runs of paroxysmal supraventricular tachycardia with a longest duration of 4 beats and a maximum heart rate of 148 bpm and these are probably brief episodes of atrial tachycardia. 3. There were rare (13), isolated premature ventricular complexes and 1 ventricular couplet. There was no evidence of ventricular tachycardia. 4. There were no pauses exceeding 2 seconds in duration. 5. No cardiac symptoms were reported in the patient diary. IMPRESSION: 1. This is a 24-hour Holter monitor that was obtained for total of 24 hours. 2. Baseline sinus rhythm with an average heart rate of 77 bpm, ranging from 56- 126 beats while in sinus rhythm with occasional, isolated premature supraventricular complexes, rare isolated premature ventricular complexes as well as 17 supraventricular couplets, 1 ventricular couplet and 2 runs of probable atrial tachycardia with the longest duration of 4 beats and a maximum heart rate of 148 bpm. 3. There was no evidence of ventricular tachycardia. 4. No cardiac symptoms were reported in the patient diary. Certain portions of this document may have been dictated utilizing voice recognition technology. Inherent to this technology, typographical and grammatical errors may exist. As much as I am diligent to identify and correct these mistakes, some errors may remain in the document. ROBBY KUMAR JR, MD Aug 19, 2021 09:23
== END ==
LOC: CARD 12:30
PROVIDERS: ATTEND Internal Medicine Cardiovascular Disease
DX: I47.2 Ventricular tachycardia (principal)
CPT/HCPCS: 93225; 93226

== ENCOUNTER → 2022-06-06 | Outpatient (CLI) | payer MEDICARE, BC ==
--- NOTE | 2022-06-06 15:56 | Diagnostic Imaging Report ---
EXAMINATION: Chest 2 view HISTORY: Short of breath and wheezing COMPARISON: 06/01/2019 FINDINGS: There is elevation of the right hemidiaphragm. No edema or pneumonia. No pleural effusion or pneumothorax. Heart size is normal. IMPRESSION: 1. Elevated right hemidiaphragm, unchanged. Dictated by: Dictated on workstation # [id number]
== END ==
LOC: LAB 13:41
PROVIDERS: ATTEND Internal Medicine Critical Care Medicine
DX: J98.6 Disorders of diaphragm (principal)
CPT/HCPCS: 71046

== ENCOUNTER → 2022-09-28 | Outpatient (CLI) | payer MEDICARE, BC ==
--- NOTE | 2022-09-28 14:06 | Diagnostic Imaging Report ---
HISTORY: Left shoulder pain. COMPARISON: None TECHNIQUE: 3 views of the left shoulder. FINDINGS: There are moderate to severe degenerative changes in the glenohumeral joint. There are mild degenerative changes in the acromioclavicular joint. There appear to be small joint bodies in the left shoulder. Alignment is normal and no fracture is seen. Cervical spine fusion hardware is noted. IMPRESSION: 1. 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 Dictated by: Dictated on workstation # [id number]
--- NOTE | 2022-09-28 14:15 | Diagnostic Imaging Report ---
CERVICAL SPINE 3 VIEWS OR LESS INDICATION: Left extremity radiculopathy and pain. COMPARISON: CT cervical spine of 05/08/2016 TECHNIQUE: 3 views of the cervical spine. FINDINGS: Prior corpectomy of C5 with interbody cage in place. Anterior plate and screw fixation has been performed from C4-C6. There is no osseous incorporation of the interbody bone graft material associated with the cage of C5. Lateral masses of C1 and C2 are in normal alignment. No prevertebral soft tissue swelling. The cervicothoracic junction is suboptimally evaluated due to summation shadow of patient's shoulders. IMPRESSION: 1. No hardware complication associated with the C5 corpectomy and C4-C6 anterior plate and screw fixation. Dictated by: Dictated on workstation # [id number]
== END ==
LOC: RAD 09:45
PROVIDERS: ATTEND Family Medicine
DX: M19.012 Primary osteoarthritis, left shoulder (principal); M54.12 Radiculopathy, cervical region
CPT/HCPCS: 72040; 73030

== ENCOUNTER → 2022-10-05 | Outpatient (CLI) | payer MEDICARE, BC | LOC: CARD 09:48 | PROVIDERS: ATTEND Family Medicine | DX: I35.1 Nonrheumatic aortic (valve) insufficiency (principal) | CPT/HCPCS: 93306 ==